=== PATIENT | female | born 1940 | race African-American/Black ===

== ENCOUNTER 2017-07-02 05:35 | Emergency (ER) | payer BC ==
[~2017-07-02] VITALS: Ht 162.6 cm; Wt 68.0 kg
[2017-07-02 08:07] LABS: HEMATOCRIT. 34.1 % (36.0-48.0); HEMOGLOBIN. 11.4 g/dL (12.0-16.0); MEAN CORPUSCULAR HEMOGLOBIN 30.3 pg (28.0-32.0); MEAN CORPUSCULAR VOLUME 90.6 fL (81.0-99.0); MEAN PLATELET VOLUME 7.6 fl (7.4-10.4); PLATELET 170 x1000/uL (130-400); RED BLOOD CELL COUNT 3.76 mill/uL (4.2-5.4); RED CELL DISTRIBUTION WIDTH 13.3 % (11.6-14.6)
[2017-07-02 08:10] LABS: INR 1.1; PROTHROMBIN TIME 11.4 sec (9.4-11.6)
[2017-07-02 08:18] LABS: CHLORIDE 104 mEq/L (98-107)
[2017-07-02 08:24] LABS: PLATELET ESTIMATE NORMAL
[2017-07-02 08:35] LABS: TROPONIN I < 0.02 ng/mL (0.00-0.04)
[2017-07-02 08:37] VITALS: BP 122/62
[2017-07-02 10:16] LABS: CLARITY URINE CLEAR (CLEAR); COLOR URINE YELLOW (YELLOW); KETONES URINE NEGATIVE (NEGATIVE); LEUKOCYTE ESTERASE URINE 2+ (NEGATIVE); NITRITE URINE NEGATIVE (NEGATIVE); OCCULT BLOOD URINE NEGATIVE (NEGATIVE); PROTEIN URINE NEGATIVE (NEGATIVE); SPECIFIC GRAVITY URINE 1.022 (1.005-1.030)
== END 2017-07-02 11:12 | disposition home or self-care (01) ==
LOC: ER 07:16
DX: N39.0 Urinary tract infection, site not specified (principal); R42 Dizziness and giddiness; R26.2 Difficulty in walking, not elsewhere classified; R79.1 Abnormal coagulation profile
CPT/HCPCS: 36415; 71045; 80053; 81003; 83880; 84484; 85025; 85610; 87086; 93005; 99285

== ENCOUNTER 2018-01-05 11:27 | Inpatient (IN) | payer BC ==
[~2018-01-05] VITALS: Ht 162.6 cm; Wt 70.3 kg
[2018-01-05 13:13] LABS: CLARITY URINE CLEAR (CLEAR); COLOR URINE YELLOW (YELLOW); KETONES URINE NEGATIVE (NEGATIVE); LEUKOCYTE ESTERASE URINE 1+ (NEGATIVE); NITRITE URINE NEGATIVE (NEGATIVE); OCCULT BLOOD URINE NEGATIVE (NEGATIVE); PH URINE 6.5 (4.5-8.0); PROTEIN URINE NEGATIVE (NEGATIVE); SPECIFIC GRAVITY URINE 1.019 (1.005-1.030); UROBILINOGEN URINE 0.2 E.U./dL (0.2-1.0)
[2018-01-05 13:52] LABS: BASOPHILS % 0.5 % (0.0-2.0); EOSINOPHILS % 0.5 % (0.0-5.0); HEMATOCRIT. 34.5 % (36.0-48.0); HEMOGLOBIN. 11.5 g/dL (12.0-16.0); LYMPHOCYTES % 7.2 % (20.0-50.0); MEAN CORPUSCULAR HEMOGLOBIN 30.9 pg (28.0-32.0); MEAN CORPUSCULAR VOLUME 92.7 fL (81.0-99.0); MEAN PLATELET VOLUME 7.8 fl (7.4-10.4); MONOCYTES % 8.3 % (2.0-8.0); NEUTROPHILS % 83.5 % (40.0-76.0); PLATELET 103 x1000/uL (130-400); RED BLOOD CELL COUNT 3.72 mill/uL (4.2-5.4); RED CELL DISTRIBUTION WIDTH 13.3 % (11.6-14.6)
[2018-01-05 13:59] LABS: CHLORIDE 103 mEq/L (98-107)
[2018-01-05 14:03] LABS: INR 1.1; PROTHROMBIN TIME 11.5 sec (9.1-11.1)
[2018-01-05 14:04] LABS: ETHANOL BLOOD < 10 mg/dL
[2018-01-05 14:05] LABS: AMMONIA 17 uMol/L (<32)
[2018-01-05 14:08] LABS: CREATINE KINASE 152 IU/L (26-192)
[2018-01-05 14:11] LABS: *COCAINE SCREEN URINE NEGATIVE (NEGATIVE); METHADONE URINE SCREEN NEGATIVE (NEGATIVE)
[2018-01-05 14:12] LABS: *AMPHETAMINES SCREEN URINE NEGATIVE (NEGATIVE); *BARBITURATES SCREEN URINE NEGATIVE (NEGATIVE); *BENZODIAZEPINES SCREEN URINE NEGATIVE (NEGATIVE); CANNABINOID URINE SCREEN NEGATIVE (NEGATIVE); OPIATES URINE SCREEN NEGATIVE (NEGATIVE); PHENCYCLIDINE URINE SCREEN NEGATIVE (NEGATIVE)
[2018-01-05] MEDS ORDERED: POTASSIUM CHLORIDE 20MEQ TABLET SR PO ONE (15:15)
[2018-01-05] MEDS ORDERED: NITROFURANTOIN 100MG M/M CAPSULE PO ONE (15:15)
[2018-01-05 20:00] VITALS: BP 135/65
[2018-01-05] MEDS ORDERED: POTASSIUM CHLORIDE 20MEQ TABLET SR PO PRN (20:00)
[2018-01-05] MEDS ORDERED: ACETAMINOPHEN 325MG TABLET PO PRN (20:00)
[2018-01-05] MEDS ORDERED: CLONIDINE 0.1MG TABLET PO PRN (20:00)
[2018-01-05 21:20] VITALS: BP 135/65
[2018-01-05] MEDS ORDERED: ENOXAPARIN 40MG/0.4ML SYR SUBCUT SCH (21:31)
[2018-01-05] MEDS ORDERED: AMOX1TAB15 PO (23:51)
[2018-01-05] MEDS ORDERED: AMOX-424 PO (23:53)
[2018-01-06] VITALS (8 sets, daily range): BP systolic 94–116; BP diastolic 49–70
[2018-01-06 06:49] LABS: BASOPHILS % 0.5 % (0.0-2.0); EOSINOPHILS % 0.8 % (0.0-5.0); HEMOGLOBIN. 10.8 g/dL (12.0-16.0); LYMPHOCYTES % 15.2 % (20.0-50.0); MEAN CORPUSCULAR HEMOGLOBIN 31.7 pg (28.0-32.0); MEAN CORPUSCULAR VOLUME 91.3 fL (81.0-99.0); MEAN PLATELET VOLUME 8.1 fl (7.4-10.4); MONOCYTES % 11.4 % (2.0-8.0); NEUTROPHILS % 72.1 % (40.0-76.0); PLATELET 107 x1000/uL (130-400); RED CELL DISTRIBUTION WIDTH 13.2 % (11.6-14.6)
[2018-01-06 07:01] LABS: CHLORIDE 104 mEq/L (98-107)
== END 2018-01-06 18:40 | disposition home or self-care (01) | DRG 264 ==
LOC: ER 11:27 → 6WST 15:28 → EDBEDREQ 15:31 → EDBEDREQTM 15:31 → ENRESERV 19:49 → 6WST 21:19
PROVIDERS: ADMIT Family Medicine Adult Medicine; ATTEND Family Medicine Adult Medicine
PROC: 0JBQ0ZZ Excision of Right Foot Subcutaneous Tissue and Fascia, Open Approach (ICD-10-PCS; principal; 2018-01-06)
DX: R55 Syncope and collapse (principal); N39.0 Urinary tract infection, site not specified; L97.419 Non-pressure chronic ulcer of right heel and midfoot with unspecified severity; E46 Unspecified protein-calorie malnutrition; I44.0 Atrioventricular block, first degree; E87.6 Hypokalemia; D69.6 Thrombocytopenia, unspecified; Z59.0 Homelessness; Z79.82 Long term (current) use of aspirin; Z68.26 Body mass index [BMI] 26.0-26.9, adult
CPT/HCPCS: 36415; 70450; 71045; 80048; 80053; 80305; 81003; 82140; 82550; 83880; 84443; 84484; 85025; 85610; 93005; 93306; 93970; 97162; 99285; G0482

== ENCOUNTER 2018-01-22 08:44 | Inpatient (IN) | payer BC ==
[~2018-01-22] VITALS: Ht 162.6 cm; Wt 68.0 kg
[2018-01-22] MEDS ORDERED: SODIUM CHLORIDE 0.9% 1,000 ML IV ONE (10:26)
[2018-01-22] MEDS ORDERED: IBUPROFEN 600MG TABLET PO STA (10:26)
[2018-01-22 11:12] LABS: BASOPHILS % 0.7 % (0.0-2.0); EOSINOPHILS % 2.4 % (0.0-5.0); HEMATOCRIT. 29.1 % (36.0-48.0); HEMOGLOBIN. 9.9 g/dL (12.0-16.0); LYMPHOCYTES % 14.6 % (20.0-50.0); MEAN CORPUSCULAR HEMOGLOBIN 31.1 pg (28.0-32.0); MEAN CORPUSCULAR VOLUME 91.1 fL (81.0-99.0); MEAN PLATELET VOLUME 7.6 fl (7.4-10.4); MONOCYTES % 13.5 % (2.0-8.0); NEUTROPHILS % 68.8 % (40.0-76.0); PLATELET 141 x1000/uL (130-400); RED CELL DISTRIBUTION WIDTH 12.9 % (11.6-14.6)
[2018-01-22 11:18] LABS: CHLORIDE 104 mEq/L (98-107)
[2018-01-22] MEDS ORDERED: AMPICILLIN SOD/SULBACTAM NA 3 G in SODIUM CHLORIDE 0.9% 100 ML IV SCH (12:45)
[2018-01-22] MEDS ORDERED: IPRATROPIUM/ALBUTEROL 0.5-3(2.5)MG/3ML NEB INH PRN (14:00)
[2018-01-22] MEDS ORDERED: MAGNESIUM/ALUMINUM HYDROXIDE/SIMETHICONE 30ML UDC PO PRN (14:00)
[2018-01-22] MEDS ORDERED: ACETAMINOPHEN 325MG TABLET PO PRN (14:00)
[2018-01-22] MEDS ORDERED: VANCOMYCIN 1 G PREMIX 200 ML IV SCH (14:00)
[2018-01-22] MEDS ORDERED: CLONIDINE 0.1MG TABLET PO PRN (14:00)
[2018-01-22] MEDS ORDERED: NA PHOS,M-B/NA PHOS,DI-BA ENEMA 118ML PR PRN (14:00)
[2018-01-22] MEDS ORDERED: GUAIFENESIN 200MG/10ML SUGAR FREE UDC PO PRN (14:00)
[2018-01-22] MEDS ORDERED: DOCUSATE SODIUM 100MG CAPSULE PO PRN (14:00)
[2018-01-22] MEDS ORDERED: MORPHINE SULFATE 4 MG/ML CPJ (NOT FOR IM USE) IV PRN (14:00)
[2018-01-22] MEDS ORDERED: ONDANSETRON HCL 4MG/2ML INJ IV PRN (14:00)
[2018-01-22 14:52] LABS: T4 FREE 0.75 ng/dL (0.76-1.46)
[2018-01-22 15:09] LABS: FOLIC ACID (FOLATE) SERUM >20 ng/mL ng/mL (>5.38)
[2018-01-22 15:20] LABS: VITAMIN B12 SERUM 325 pg/mL (211-911)
[2018-01-22 16:00] VITALS: BP 135/74
[2018-01-22] MEDS ORDERED: NITROGLYCERIN 0.4MG TABLET SL SL PRN (16:00)
[2018-01-22 16:32] VITALS: BP 135/74
[2018-01-22] MEDS ORDERED: VANCOMYCIN 1500MG in DEXTROSE 5% WATER 250ML IV NR (17:00)
[2018-01-22] MEDS: ENOXAPARIN 40MG/0.4ML SYR SUBCUT SCH (17:48)
[2018-01-22 20:07] VITALS: BP 108/51
[2018-01-22] MEDS: FAMOTIDINE 20MG TABLET PO SCH (20:54)
[2018-01-22] MEDS: ASCORBIC ACID 500 MG TABLET PO SCH (20:54)
[2018-01-22] MEDS: PIPERACILLIN/TAZ 3.375G PREMIX 50 ML IV SCH (20:54)
[2018-01-22] MEDS ORDERED: ZOLPIDEM TARTRATE 5MG TABLET PO PRN (21:00)
[2018-01-23] VITALS: BP 108/61
[2018-01-23] MEDS: PIPERACILLIN/TAZ 3.375G PREMIX 50 ML IV SCH ×5 (03:26→23:26)
[2018-01-23 04:00] VITALS: BP 110/58
[2018-01-23] MEDS: LEVOTHYROXINE SODIUM 25MCG TABLET PO SCH (06:30)
[2018-01-23 08:00] VITALS: BP 119/60
[2018-01-23] MEDS ORDERED: VANCOMYCIN 750 MG PREMIX 150 ML IV SCH (08:00)
[2018-01-23] MEDS: ASCORBIC ACID 500 MG TABLET PO SCH ×2 (08:53→22:47)
[2018-01-23] MEDS: ZINC SULFATE 220 MG ( 50 ) CAPSULE PO SCH (08:54)
[2018-01-23] MEDS: TRAMADOL 50MG TABLET PO PRN (09:45)
[2018-01-23 12:00] VITALS: BP 125/55
[2018-01-23] MEDS: ENOXAPARIN 40MG/0.4ML SYR SUBCUT SCH (15:53)
[2018-01-23 16:00] VITALS: BP 93/57
[2018-01-23 20:00] VITALS: BP 113/54
[2018-01-23] MEDS: FAMOTIDINE 20MG TABLET PO SCH (22:47)
[2018-01-24] VITALS: BP 99/58
[2018-01-24] MEDS ORDERED: VANCOMYCIN 750 MG PREMIX 150 ML IV SCH
[2018-01-24 04:00] VITALS: BP 119/69
[2018-01-24] MEDS: PIPERACILLIN/TAZ 3.375G PREMIX 50 ML IV SCH ×3 (06:00→18:24)
[2018-01-24 06:44] LABS: MEAN CORPUSCULAR VOLUME 90.4 fL (81.0-99.0); PLATELET 140 x1000/uL (130-400); RED BLOOD CELL COUNT 3.54 mill/uL (4.2-5.4); RED CELL DISTRIBUTION WIDTH 13.1 % (11.6-14.6)
[2018-01-24] MEDS: LEVOTHYROXINE SODIUM 25MCG TABLET PO SCH (07:25)
[2018-01-24 08:00] VITALS: BP 103/49
[2018-01-24 08:28] LABS: CHLORIDE 102 mEq/L (98-107)
[2018-01-24] MEDS: ASCORBIC ACID 500 MG TABLET PO SCH ×2 (08:56→20:32)
[2018-01-24] MEDS: ZINC SULFATE 220 MG ( 50 ) CAPSULE PO SCH (08:56)
[2018-01-24 12:00] VITALS: BP 112/57
[2018-01-24] MEDS: VANCOMYCIN 750 MG PREMIX 150 ML IV SCH ×2 (13:28→22:27)
[2018-01-24 16:00] VITALS: BP 101/50
[2018-01-24] MEDS: ENOXAPARIN 40MG/0.4ML SYR SUBCUT SCH (18:24)
[2018-01-24 19:54] VITALS: BP 124/55
[2018-01-24] MEDS: FAMOTIDINE 20MG TABLET PO SCH (20:32)
[2018-01-25] VITALS: BP 110/62
[2018-01-25] MEDS: PIPERACILLIN/TAZ 3.375G PREMIX 50 ML IV SCH ×4 (00:21→18:01)
[2018-01-25 04:00] VITALS: BP 123/64
[2018-01-25] MEDS: LEVOTHYROXINE SODIUM 25MCG TABLET PO SCH (06:34)
[2018-01-25] MEDS: VANCOMYCIN 750 MG PREMIX 150 ML IV SCH (07:10)
[2018-01-25 08:00] VITALS: BP 115/63
[2018-01-25] MEDS: ZINC SULFATE 220 MG ( 50 ) CAPSULE PO SCH (08:16)
[2018-01-25] MEDS: ASCORBIC ACID 500 MG TABLET PO SCH ×2 (08:16→20:38)
[2018-01-25 10:41] LABS: CHLORIDE 102 mEq/L (98-107)
[2018-01-25 10:55] LABS: VANCOMYCIN TROUGH 11.4 ug/mL (5.0-10.0)
[2018-01-25 12:00] VITALS: BP 123/63
[2018-01-25] MEDS: VANCOMYCIN 1 G PREMIX 200 ML IV SCH ×2 (14:09→21:03)
[2018-01-25] MEDS: ENOXAPARIN 40MG/0.4ML SYR SUBCUT SCH (15:42)
[2018-01-25 16:00] VITALS: BP 125/71
[2018-01-25 20:00] VITALS: BP 105/57
[2018-01-25] MEDS: FAMOTIDINE 20MG TABLET PO SCH (20:38)
[2018-01-26 00:37] VITALS: BP 103/57
[2018-01-26] MEDS: PIPERACILLIN/TAZ 3.375G PREMIX 50 ML IV SCH ×3 (02:16→11:11)
[2018-01-26 04:43] VITALS: BP_SYST 103; BP_SYST 109; BP_DIAS 57; BP_DIAS 64
[2018-01-26] MEDS: VANCOMYCIN 1 G PREMIX 200 ML IV SCH ×2 (05:44→13:34)
[2018-01-26] MEDS: LEVOTHYROXINE SODIUM 25MCG TABLET PO SCH (06:32)
[2018-01-26 08:00] VITALS: BP 112/68
[2018-01-26] MEDS: ZINC SULFATE 220 MG ( 50 ) CAPSULE PO SCH (08:54)
[2018-01-26] MEDS: ASCORBIC ACID 500 MG TABLET PO SCH (08:54)
[2018-01-26 12:00] VITALS: BP 106/69
[2018-01-26 12:39] VITALS: BP 106/69
[2018-01-26 12:54] VITALS: BP 106/69
[2018-01-26] MEDS: TRAMADOL 50MG TABLET PO PRN (12:54)
== END 2018-01-26 14:02 | disposition home or self-care (01) | DRG 854 ==
LOC: ER 08:44 → 6EST 12:40 → EDBEDREQTM 12:42 → EDBEDREQSVC 12:42 → EDBEDREQ 12:42 → ENRESERV 12:52 → SUPCPDRO 13:49
PROVIDERS: ADMIT Internal Medicine; ATTEND Internal Medicine
PROC: 0JBQ0ZZ Excision of Right Foot Subcutaneous Tissue and Fascia, Open Approach (ICD-10-PCS; principal; 2018-01-23)
DX: A41.9 Sepsis, unspecified organism (principal); E44.1 Mild protein-calorie malnutrition; L97.418 Non-pressure chronic ulcer of right heel and midfoot with other specified severity; K30 Functional dyspepsia; K59.00 Constipation, unspecified; G47.00 Insomnia, unspecified; S91.331A Puncture wound without foreign body, right foot, initial encounter; D63.8 Anemia in other chronic diseases classified elsewhere; I11.9 Hypertensive heart disease without heart failure; I25.10 Atherosclerotic heart disease of native coronary artery without angina pectoris; Z91.81 History of falling; Z82.49 Family history of ischemic heart disease and other diseases of the circulatory system; Z87.440 Personal history of urinary (tract) infections; W60.XXXA Contact with nonvenomous plant thorns and spines and sharp leaves, initial encounter; Y93.89 Activity, other specified; Y92.89 Other specified places as the place of occurrence of the external cause; Y99.8 Other external cause status; Z68.25 Body mass index [BMI] 25.0-25.9, adult
CPT/HCPCS: 36415; 71045; 73630; 73721; 80048; 80053; 80061; 80202; 82607; 82746; 83036; 83540; 83550; 83605; 84439; 84443; 85025; 85027; 87040; 87070; 87077; 87186; 87205; 93923; 93970; 96361; 96365; 99285; C1893; J0295; J1650; J2543; J3370; J7030; J7040; J7050; J7060

== ENCOUNTER 2019-05-02 12:12 | Inpatient (IN) | payer MEDICARE, BC, MEDICAID ==
[~2019-05-02] VITALS: Ht 152.4 cm; Wt 47.2 kg
[2019-05-02 13:07] LABS: HEMATOCRIT. 43.1 % (36.0-48.0); HEMOGLOBIN. 14.1 g/dL (12.0-16.0); MEAN CORPUSCULAR HEMOGLOBIN 30.7 pg (28.0-32.0); MEAN CORPUSCULAR VOLUME 93.7 fL (81.0-99.0); MEAN PLATELET VOLUME 10.3 fl (7.4-10.4); PLATELET 78 x1000/uL (130-400); RED BLOOD CELL COUNT 4.61 mill/uL (4.2-5.4); RED CELL DISTRIBUTION WIDTH 14.5 % (11.6-14.6)
[2019-05-02 13:33] LABS: PLATELET ESTIMATE DECREASED
[2019-05-02 13:36] LABS: CLARITY URINE CLEAR (CLEAR); COLOR URINE YELLOW (YELLOW); KETONES URINE NEGATIVE (NEGATIVE); LEUKOCYTE ESTERASE URINE NEGATIVE (NEGATIVE); NITRITE URINE NEGATIVE (NEGATIVE); OCCULT BLOOD URINE NEGATIVE (NEGATIVE); PH URINE 5.5 (4.5-8.0); PROTEIN URINE NEGATIVE (NEGATIVE); SPECIFIC GRAVITY URINE 1.014 (1.005-1.030); UROBILINOGEN URINE 0.2 E.U./dL (0.2-1.0)
[2019-05-02 13:50] LABS: *AMPHETAMINES SCREEN URINE NEGATIVE (NEGATIVE); *BARBITURATES SCREEN URINE NEGATIVE (NEGATIVE); *BENZODIAZEPINES SCREEN URINE NEGATIVE (NEGATIVE); METHADONE URINE SCREEN NEGATIVE (NEGATIVE); OPIATES URINE SCREEN NEGATIVE (NEGATIVE)
[2019-05-02 13:51] LABS: *COCAINE SCREEN URINE NEGATIVE (NEGATIVE); CANNABINOID URINE SCREEN NEGATIVE (NEGATIVE); PHENCYCLIDINE URINE SCREEN NEGATIVE (NEGATIVE)
[2019-05-02] MEDS ORDERED: SODIUM CHLORIDE 0.9% 1,000 ML IV ONE (14:30)
[2019-05-02] MEDS ORDERED: NITROGLYCERIN 0.4MG TABLET SL SL PRN (14:45)
[2019-05-02] MEDS ORDERED: SODIUM CHLORIDE 0.9% 1,000 ML IV SCH (14:47)
[2019-05-02] MEDS ORDERED: IPRATROPIUM/ALBUTEROL 0.5-3(2.5)MG/3ML NEB NEB PRN (15:00)
[2019-05-02] MEDS ORDERED: LEVOFLOXACIN 500MG PREMIX 100 ML IV SCH ×2 (15:00→15:07)
[2019-05-02] MEDS ORDERED: NA PHOS,M-B/NA PHOS,DI-BA ENEMA 118ML PR PRN (15:00)
[2019-05-02] MEDS ORDERED: ONDANSETRON HCL 4MG/2ML INJ IV PRN (15:00)
[2019-05-02] MEDS ORDERED: GUAIFENESIN 200MG/10ML SUGAR FREE UDC PO PRN (15:00)
[2019-05-02] MEDS ORDERED: ACETAMINOPHEN 325MG TABLET PO PRN (15:00)
[2019-05-02] MEDS ORDERED: MAGNESIUM/ALUMINUM HYDROXIDE/SIMETHICONE 30ML UDC PO PRN (15:00)
[2019-05-02] MEDS ORDERED: CLONIDINE 0.1MG TABLET PO PRN (15:00)
[2019-05-02] MEDS ORDERED: DOCUSATE SODIUM 100MG CAPSULE PO PRN (15:00)
[2019-05-02] MEDS ORDERED: ENOXAPARIN 40MG/0.4ML SYR SUBCUT SCH (15:00)
[2019-05-02 15:38] LABS: CHLORIDE 125 mEq/L (98-107)
[2019-05-02 15:42] LABS: ETHANOL BLOOD < 10 mg/dL
[2019-05-02 15:49] LABS: T4 FREE 0.8 ng/dL (0.76-1.46)
[2019-05-02] MEDS ORDERED: KCL 20MEQ/100ML PREMIX 100 ML IV ONE (16:15)
[2019-05-02] MEDS ORDERED: SODIUM CHLORIDE 0.9% 1000ML BAG (SEPSIS BOLUS) IV ONE (16:15)
[2019-05-02] MEDS ORDERED: LEVOFLOXACIN 750MG PREMIX 150 ML IV ONE (16:15)
[2019-05-02] MEDS ORDERED: POTASSIUM CHLORIDE 20MEQ TABLET SR PO ONE (16:15)
[2019-05-02] MEDS: DEXT 5%/0.45% NACL KCL 20MEQ/L 1,000 ML IV SCH (19:19)
[2019-05-02 21:00] VITALS: BP 150/69
[2019-05-02] MEDS ORDERED: ZOLPIDEM TARTRATE 5MG TABLET PO PRN (21:00)
[2019-05-02] MEDS ORDERED: ATORVASTATIN CALCIUM 10MG TABLET PO SCH (21:00)
[2019-05-02 21:15] VITALS: BP 150/69
[2019-05-02] MEDS ORDERED: CEFTRIAXONE 1 G PREMIX 50 ML IV NR (23:00)
[2019-05-02] MEDS: ASCORBIC ACID 500 MG TABLET PO SCH (23:05)
[2019-05-02] MEDS: TRAMADOL 50MG TABLET PO PRN (23:05)
[2019-05-03] VITALS: BP 145/79
[2019-05-03 00:32] LABS: CREATINE KINASE MB FRACTION 1.2 ng/mL (0.5-3.6)
[2019-05-03] MEDS: DILTIAZEM HCL 60MG TABLET PO SCH ×4 (01:06→18:00)
[2019-05-03 04:00] VITALS: BP 140/82
[2019-05-03] MEDS: FOLIC ACID 1 MG, THIAMINE HCL 100 MG, MVI, ADULT NO.1 10 ML in DEXTROSE 5% WATER 1,000 ML IV NR ×8 (05:20→09:41)
[2019-05-03] MEDS: LEVOTHYROXINE SODIUM 50MCG TABLET PO SCH (05:45)
[2019-05-03] MEDS: TRAMADOL 50MG TABLET PO PRN ×3 (05:46→22:13)
[2019-05-03 07:04] LABS: CREATINE KINASE MB FRACTION 1.5 ng/mL (0.5-3.6)
[2019-05-03 08:00] VITALS: BP 121/67
[2019-05-03] MEDS ORDERED: ENOXAPARIN 30MG/0.3ML SYR SUBCUT SCH (09:00)
[2019-05-03] MEDS: ASCORBIC ACID 500 MG TABLET PO SCH ×2 (09:39→22:11)
[2019-05-03] MEDS: ZINC SULFATE 220 MG ( 50 ) CAPSULE PO SCH (09:39)
[2019-05-03] MEDS: ASPIRIN 325MG EC TABLET PO SCH (09:39)
[2019-05-03] MEDS: FAMOTIDINE 20MG TABLET PO SCH (10:12)
[2019-05-03 12:00] VITALS: BP 134/80
[2019-05-03 12:08] LABS: HEMATOCRIT. 36.8 % (36.0-48.0); HEMOGLOBIN. 12.4 g/dL (12.0-16.0); MEAN CORPUSCULAR HEMOGLOBIN 30.8 pg (28.0-32.0); MEAN CORPUSCULAR VOLUME 91.6 fL (81.0-99.0); MEAN PLATELET VOLUME 9.9 fl (7.4-10.4); PLATELET 66 x1000/uL (130-400); RED BLOOD CELL COUNT 4.01 mill/uL (4.2-5.4); RED CELL DISTRIBUTION WIDTH 14.1 % (11.6-14.6)
[2019-05-03 12:22] LABS: PHOSPHORUS 1.4 mg/dL (2.5-4.9)
[2019-05-03] MEDS ORDERED: POTASSIUM PHOS,M-BASIC-D-BASIC 30 MMOL in DEXT 5% WATER 500 ML IV ONE (13:00)
[2019-05-03] MEDS: DEXT 5%/0.45% NACL KCL 20MEQ/L 1,000 ML IV SCH ×2 (13:00→22:05)
[2019-05-03 14:03] LABS: PLATELET ESTIMATE DECREASED
[2019-05-03 16:00] VITALS: BP 112/59
[2019-05-03 20:00] VITALS: BP 136/78
[2019-05-03] MEDS: CEFTRIAXONE 1 G PREMIX 50 ML IV SCH (22:04)
[2019-05-03] MEDS: ATORVASTATIN CALCIUM 10MG TABLET PO SCH (22:11)
[2019-05-04] VITALS: BP 124/82
[2019-05-04 04:00] VITALS: BP 137/77
[2019-05-04 05:43] LABS: BASOPHILS % 0.5 % (0.0-2.0); EOSINOPHILS % 1.2 % (0.0-5.0); HEMATOCRIT. 34.7 % (36.0-48.0); HEMOGLOBIN. 11.8 g/dL (12.0-16.0); LYMPHOCYTES % 9.9 % (20.0-50.0); MEAN CORPUSCULAR HEMOGLOBIN 30.8 pg (28.0-32.0); MEAN CORPUSCULAR VOLUME 90.8 fL (81.0-99.0); MEAN PLATELET VOLUME 10.7 fl (7.4-10.4); MONOCYTES % 6.4 % (2.0-8.0); PLATELET 66 x1000/uL (130-400); RED BLOOD CELL COUNT 3.83 mill/uL (4.2-5.4); RED CELL DISTRIBUTION WIDTH 13.9 % (11.6-14.6)
[2019-05-04] MEDS: DILTIAZEM HCL 60MG TABLET PO SCH ×4 (05:56→17:38)
[2019-05-04] MEDS: LEVOTHYROXINE SODIUM 50MCG TABLET PO SCH (05:58)
[2019-05-04 06:06] LABS: CHLORIDE 116 mEq/L (98-107)
[2019-05-04 06:12] LABS: PHOSPHORUS 2.5 mg/dL (2.5-4.9)
[2019-05-04] MEDS ORDERED: POTASSIUM CHLORIDE 20MEQ TABLET SR PO NR (07:45)
[2019-05-04 08:00] VITALS: BP 115/79
[2019-05-04] MEDS: ASPIRIN 325MG EC TABLET PO SCH (08:48)
[2019-05-04] MEDS: DOCUSATE SODIUM SUGAR FREE 100MG/10ML UDC PO PRN (08:48)
[2019-05-04] MEDS: FAMOTIDINE 20MG TABLET PO SCH (08:48)
[2019-05-04] MEDS: ASCORBIC ACID 500 MG TABLET PO SCH ×2 (08:48→21:22)
[2019-05-04] MEDS: ZINC SULFATE 220 MG ( 50 ) CAPSULE PO SCH (08:48)
[2019-05-04] MEDS: FOLIC ACID 1MG TABLET PO SCH (08:48)
[2019-05-04] MEDS: DEXT 5%/0.45% NACL KCL 20MEQ/L 1,000 ML IV SCH ×2 (08:49→18:01)
[2019-05-04] MEDS ORDERED: POTASSIUM PHOS,M-BASIC-D-BASIC 10 MMOL in DEXT 5% WATER 246.6667 ML IV NR (09:00)
[2019-05-04] MEDS: TRAMADOL 50MG TABLET PO PRN (09:47)
[2019-05-04 12:00] VITALS: BP 127/70
[2019-05-04] MEDS ORDERED: MAGNESIUM 2 G PREMIX 50 ML IV NR ×2 (12:00→15:00)
[2019-05-04] MEDS ORDERED: LEVOFLOXACIN 250MG PREMIX 50 ML IV SCH ×2 (14:00→16:00)
[2019-05-04 16:00] VITALS: BP 120/51
[2019-05-04 20:00] VITALS: BP 120/75
[2019-05-04] MEDS: CEFTRIAXONE 1 G PREMIX 50 ML IV SCH (20:35)
[2019-05-04] MEDS: ATORVASTATIN CALCIUM 10MG TABLET PO SCH (21:21)
[2019-05-05] VITALS: BP 114/76
[2019-05-05] MEDS: DILTIAZEM HCL 60MG TABLET PO SCH ×4 (00:28→17:46)
[2019-05-05 04:00] VITALS: BP 101/64
[2019-05-05] MEDS: DEXT 5%/0.45% NACL KCL 20MEQ/L 1,000 ML IV SCH ×2 (05:21→18:26)
[2019-05-05] MEDS: LEVOTHYROXINE SODIUM 50MCG TABLET PO SCH (06:16)
[2019-05-05 08:00] VITALS: BP 120/70
[2019-05-05] MEDS: FAMOTIDINE 20MG TABLET PO SCH (08:32)
[2019-05-05] MEDS: DOCUSATE SODIUM SUGAR FREE 100MG/10ML UDC PO PRN (08:32)
[2019-05-05] MEDS: ASPIRIN 325MG EC TABLET PO SCH (08:32)
[2019-05-05] MEDS: FOLIC ACID 1MG TABLET PO SCH (08:32)
[2019-05-05] MEDS: ASCORBIC ACID 500 MG TABLET PO SCH ×2 (08:32→21:00)
[2019-05-05] MEDS: ZINC SULFATE 220 MG ( 50 ) CAPSULE PO SCH (08:32)
[2019-05-05 10:34] LABS: CHLORIDE 110 mEq/L (98-107)
[2019-05-05 12:00] VITALS: BP 116/54
[2019-05-05] MEDS: LEVOFLOXACIN 250MG PREMIX 50 ML IV SCH (14:18)
[2019-05-05 16:00] VITALS: BP 128/74
[2019-05-05 20:00] VITALS: BP 126/80
[2019-05-05 20:14] LABS: CHLORIDE 112 mEq/L (98-107)
[2019-05-05] MEDS: CEFTRIAXONE 1 G PREMIX 50 ML IV SCH (20:58)
[2019-05-05] MEDS: ATORVASTATIN CALCIUM 10MG TABLET PO SCH (21:00)
[2019-05-05] MEDS: PANTOPRAZOLE SODIUM 40 MG/VIAL IV SCH (21:16)
[2019-05-06] MEDS: DILTIAZEM HCL 60MG TABLET PO SCH ×4 (00:53→18:03)
[2019-05-06] MEDS: DEXT 5%/0.45% NACL KCL 20MEQ/L 1,000 ML IV SCH ×2 (03:35→15:07)
[2019-05-06 04:00] VITALS: BP 116/59
[2019-05-06] MEDS: LEVOTHYROXINE SODIUM 50MCG TABLET PO SCH (06:45)
[2019-05-06 08:00] VITALS: BP 118/62
[2019-05-06] MEDS ORDERED: CEFAZOLIN 1000MG PREMIX 50 ML IV NR (08:00)
[2019-05-06] MEDS: PANTOPRAZOLE SODIUM 40 MG/VIAL IV SCH ×2 (08:08→21:08)
[2019-05-06] MEDS: ASPIRIN 325MG EC TABLET PO SCH (08:13)
[2019-05-06] MEDS: ASCORBIC ACID 500 MG TABLET PO SCH ×2 (08:14→20:52)
[2019-05-06] MEDS: ZINC SULFATE 220 MG ( 50 ) CAPSULE PO SCH (08:14)
[2019-05-06] MEDS: FOLIC ACID 1MG TABLET PO SCH (08:14)
[2019-05-06 08:51] LABS: BASOPHILS % 0.6 % (0.0-2.0); EOSINOPHILS % 2.1 % (0.0-5.0); HEMATOCRIT. 33.8 % (36.0-48.0); HEMOGLOBIN. 11.3 g/dL (12.0-16.0); LYMPHOCYTES % 8.4 % (20.0-50.0); MEAN CORPUSCULAR HEMOGLOBIN 30.5 pg (28.0-32.0); MEAN CORPUSCULAR VOLUME 91.3 fL (81.0-99.0); MEAN PLATELET VOLUME 11.2 fl (7.4-10.4); MONOCYTES % 8.8 % (2.0-8.0); NEUTROPHILS % 80.1 % (40.0-76.0); PLATELET 63 x1000/uL (130-400); RED CELL DISTRIBUTION WIDTH 13.4 % (11.6-14.6)
[2019-05-06 08:53] LABS: INR 1.1; PARTIAL THROMBOPLASTIN TIME 46.6 sec (23.4-31.0); PROTHROMBIN TIME 11.1 sec (9.6-11.0)
[2019-05-06 09:00] LABS: CHLORIDE 111 mEq/L (98-107)
[2019-05-06 09:08] LABS: PHOSPHORUS 2.1 mg/dL (2.5-4.9)
[2019-05-06 12:00] VITALS: BP 112/87
[2019-05-06] MEDS ORDERED: POTASSIUM PHOS,M-BASIC-D-BASIC 15 MMOL in DEXT 5% WATER 245 ML IV NR (12:00)
[2019-05-06] MEDS ORDERED: PROPOFOL 200MG/20ML VIAL IV ONE (12:15)
[2019-05-06] MEDS ORDERED: PANTOPRAZOLE SODIUM 40 MG/VIAL IV NR (12:30)
[2019-05-06 13:50] VITALS: BP 145/76
[2019-05-06] MEDS: LEVOFLOXACIN 250MG PREMIX 50 ML IV SCH (15:15)
[2019-05-06] MEDS: METOCLOPRAMIDE HCL 10MG/2ML VIAL IV SCH (18:03)
[2019-05-06] MEDS: SUCRALFATE 1 G/10 ML UDC GT SCH (18:03)
[2019-05-06 20:00] VITALS: BP 119/59
[2019-05-06] MEDS: CEFTRIAXONE 1 G PREMIX 50 ML IV SCH (20:52)
[2019-05-06] MEDS: ATORVASTATIN CALCIUM 10MG TABLET PO SCH (20:52)
[2019-05-07] VITALS: BP 100/58
[2019-05-07] MEDS: SUCRALFATE 1 G/10 ML UDC GT SCH ×4 (00:43→18:32)
[2019-05-07] MEDS: METOCLOPRAMIDE HCL 10MG/2ML VIAL IV SCH ×4 (00:43→18:32)
[2019-05-07 04:00] VITALS: BP 135/79
[2019-05-07] MEDS: LEVOTHYROXINE SODIUM 50MCG TABLET PO SCH (06:21)
[2019-05-07] MEDS: DEXT 5%/0.45% NACL KCL 20MEQ/L 1,000 ML IV SCH ×3 (06:21→18:44)
[2019-05-07] MEDS: DILTIAZEM HCL 60MG TABLET PO SCH ×4 (06:23→18:34)
[2019-05-07 07:16] LABS: HEMATOCRIT. 35.1 % (36.0-48.0); HEMOGLOBIN. 11.7 g/dL (12.0-16.0); MEAN CORPUSCULAR HEMOGLOBIN 30.2 pg (28.0-32.0); MEAN CORPUSCULAR VOLUME 90.4 fL (81.0-99.0); MEAN PLATELET VOLUME 10.5 fl (7.4-10.4); PLATELET 69 x1000/uL (130-400); RED BLOOD CELL COUNT 3.88 mill/uL (4.2-5.4); RED CELL DISTRIBUTION WIDTH 13.8 % (11.6-14.6)
[2019-05-07 08:00] VITALS: BP 112/53
[2019-05-07 08:20] LABS: CHLORIDE 106 mEq/L (98-107)
[2019-05-07 08:27] LABS: PHOSPHORUS 2.7 mg/dL (2.5-4.9)
[2019-05-07] MEDS: ASCORBIC ACID 500 MG TABLET PO SCH ×2 (08:56→21:17)
[2019-05-07] MEDS: ASPIRIN 325MG EC TABLET PO SCH (08:56)
[2019-05-07] MEDS: FOLIC ACID 1MG TABLET PO SCH (08:56)
[2019-05-07] MEDS: ZINC SULFATE 220 MG ( 50 ) CAPSULE PO SCH (08:56)
[2019-05-07 12:00] VITALS: BP 123/59
[2019-05-07] MEDS ORDERED: MAGNESIUM 2 G PREMIX 50 ML IV NR (12:30)
[2019-05-07] MEDS: LEVOFLOXACIN 250MG PREMIX 50 ML IV SCH ×2 (14:00→16:51)
[2019-05-07 16:00] VITALS: BP 101/44
[2019-05-07] MEDS ORDERED: LORAZEPAM 2MG/ML CPJ IV PRN (19:30)
[2019-05-07] MEDS ORDERED: DILTIAZEM HCL 5MG/ML 5ML VIAL IV NR (19:30)
[2019-05-07 20:00] VITALS: BP 139/66
[2019-05-07 20:58] LABS: PLATELET ESTIMATE DECREASED
[2019-05-07] MEDS ORDERED: SODIUM CHLORIDE 0.9% 500 ML IV SCH (21:00)
[2019-05-07] MEDS ORDERED: HALOPERIDOL LACTATE 5MG/ML VIAL IM SCH (21:00)
[2019-05-07] MEDS: ATORVASTATIN CALCIUM 10MG TABLET PO SCH (21:17)
[2019-05-07] MEDS: CEFTRIAXONE 1 G PREMIX 50 ML IV SCH (21:17)
[2019-05-08] VITALS: BP 123/63
[2019-05-08] MEDS: SUCRALFATE 1 G/10 ML UDC GT SCH ×3 (00:42→12:10)
[2019-05-08] MEDS: DILTIAZEM HCL 60MG TABLET PO SCH ×3 (00:42→11:34)
[2019-05-08] MEDS: METOCLOPRAMIDE HCL 10MG/2ML VIAL IV SCH ×3 (00:42→12:10)
[2019-05-08 04:00] VITALS: BP 132/63
[2019-05-08] MEDS: LEVOTHYROXINE SODIUM 50MCG TABLET PO SCH (05:44)
[2019-05-08 08:00] VITALS: BP 97/32
[2019-05-08] MEDS ORDERED: MAGNESIUM OXIDE 400MG TABLET PO SCH (09:00)
[2019-05-08] MEDS: ZINC SULFATE 220 MG ( 50 ) CAPSULE PO SCH (09:46)
[2019-05-08] MEDS: DEXT 5%/0.45% NACL KCL 20MEQ/L 1,000 ML IV SCH (09:46)
[2019-05-08] MEDS: ASPIRIN 325MG EC TABLET PO SCH (09:46)
[2019-05-08] MEDS: ASCORBIC ACID 500 MG TABLET PO SCH (09:46)
[2019-05-08] MEDS: FOLIC ACID 1MG TABLET PO SCH (09:47)
[2019-05-08 12:00] VITALS: BP 98/41
[2019-05-08] MEDS ORDERED: LEVOFLOXACIN 500MG TABLET GT SCH (14:00)
[2019-05-08] MEDS ORDERED: LEVOFLOXACIN 250MG TABLET PO SCH (14:00)
[2019-05-08 15:28] VITALS: BP 99/50
== END 2019-05-08 16:05 | DRG 91 ==
LOC: ER 12:12 → 5WST 14:35 → ENRESERV 18:48
PROVIDERS: ADMIT Internal Medicine; ATTEND Internal Medicine
PROC: 0DH63UZ Insertion of Feeding Device into Stomach, Percutaneous Approach (ICD-10-PCS; principal; 2019-05-06)
PROC: 0DB68ZX Excision of Stomach, Via Natural or Artificial Opening Endoscopic, Diagnostic (ICD-10-PCS; 2019-05-06)
DX: G92 Toxic encephalopathy (principal); A41.9 Sepsis, unspecified organism; N17.0 Acute kidney failure with tubular necrosis; E43 Unspecified severe protein-calorie malnutrition; E87.0 Hyperosmolality and hypernatremia; G45.9 Transient cerebral ischemic attack, unspecified; E87.6 Hypokalemia; E53.8 Deficiency of other specified B group vitamins; E03.9 Hypothyroidism, unspecified; E83.39 Other disorders of phosphorus metabolism; E83.42 Hypomagnesemia; K29.70 Gastritis, unspecified, without bleeding; R13.10 Dysphagia, unspecified; R62.7 Adult failure to thrive; E88.09 Other disorders of plasma-protein metabolism, not elsewhere classified; W06.XXXA Fall from bed, initial encounter; Z82.49 Family history of ischemic heart disease and other diseases of the circulatory system; Z68.20 Body mass index [BMI] 20.0-20.9, adult; Z74.01 Bed confinement status; Z86.73 Personal history of transient ischemic attack (TIA), and cerebral infarction without residual deficits; Z87.440 Personal history of urinary (tract) infections
CPT/HCPCS: 36415; 71045; 80048; 80053; 80061; 80305; 80320; 81003; 82550; 82553; 82607; 82746; 83036; 83540; 83550; 83605; 83735; 84100; 84439; 84443; 84484; 85025; 88305; 88313; 92610; 93306; 93970; 96365; 99285; C1893; C9113; J0690; J0696; J1630; J1956; J2704; J2765; J3411; J3475; J3480; J3490; J7030; J7040; J7060; J7070; A4315; G0480